=== PATIENT | male | born 1960 | race Caucasian/White ===

== ENCOUNTER 2022-11-10 08:13 | Emergency (ER) | payer OTHER, BC, SELFPAY ==
[2022-11-10 08:30] VITALS: BP 164/105; PULSE 73; RESP 18; TEMP 36.1; O2SAT 94; BMI 27.1
--- NOTE | 2022-11-10 08:36 | XR_ITS ---
Patient: HEIDI NEWMAN Facility:?[facility] Patient ID:?[id number] Site Patient ID:?[id number]. Site :?[id number] Study:?XRay-Extremity Left HAND 3 VIEW-11/10/2022 9:22:48 AM Ordering Physician:?UNKNOWN UNKNOWN Final Report: INDICATION: Trauma. Laceration. The patient cut his hand with a saw. TECHNIQUE: Three views of the left hand. FINDINGS: Soft tissue defect along the proximal lateral margin left 2nd finger. Small amount of air within the soft tissues. No radiodense foreign body. No fracture or erosive change. Degenerative change of the DIP joints of the fingers. Degenerative change of the wrist including the 1st CMC joint and triscaphe joint. IMPRESSION: Soft tissue swelling, laceration, and a small amount of air in the soft tissues along the proximal margin of the left 2nd finger without fracture or radiodense foreign bodies. Dictated by Jayce Borden MD @ 11/10/2022 9:32:40 AM Signed by:?Jayce Borden MD @11/10/2022 9:32:40 AM (Electronic Signature)
--- NOTE | 2022-11-10 08:48 | ED.NURSE ---
last tetanus 11/10/20
--- NOTE | 2022-11-10 09:55 | ED.WOUNDLAC ---
HPI - Wound/Laceration General Chief Complaint: Laceration/Wound Stated Complaint: r. hand lac Time Seen by Provider: 11/10/22 08:36 History of Present Illness HPI narrative: Pt is a 62 year old gentleman who comes in today after getting his gloved left hand caught in a band saw. Pt was able to pull his hand out but unfortunately he suffered a 6 cm laceration on the lateral and posterior aspect of his second digit and a 2 cm laceration on the posterior aspect of his 5th digit. Pt has full function of his hand and no other injuries. Direct pressure was applied and pt presented to the emergency room with no neuro or vascular injuries. Pt states pain is mild. Bleeding has been controlled. Pt states that he is up to date on his vaccinations. Related Data Home Medications Medication Instructions Recorded Confirmed escitalopram oxalate 10 mg tablet mg 11/10/22 rosuvastatin 10 mg tablet mg 11/10/22 tamsulosin 0.4 mg capsule mg PO 11/10/22 Allergies Allergy/AdvReac Type Severity Reaction Status Date / Time No Known Drug Allergies Allergy Verified 11/10/22 08:33 Review of Systems Status of ROS: Reports: 6 or more systems reviewed and unremarkable except as noted in History and below PFSH PFSH Medical History BPH (benign prostatic hyperplasia) Depression Hyperlipidemia Social History Smoking Status: Never smoker Do you use any of these nicotine containing products: Other How often do you have a drink containing alcohol: 2-3 times a week AUDIT-C Alcohol total score: 3 Non-prescribed substance use: denies use Exam Narrative: Exam Narrative: EXAM GENERAL: Patient appears comfortable and well. EYES: No scleral icterus. THYROID: no thyroid nodules or thyromegaly. LYMPH: No supraclavicular or cervical lymphadenopathy. SKIN: Lacerations as described above. EXT: No dependent lower extremity pedal edema. ABD: Soft, non tender, non distended. PSYCH: Good eye contact, speech is not pressured. Const: Vital Signs, click to edit/add: Vital Signs - 24 hr 11/10/22 08:30 Temperature 97 F L Pulse Rate [Pulse Oximeter] 73 Respiratory Rate 18 Blood Pressure [Ri ght Upper Arm] 164/105 H Pulse Oximetry 94 Oxygen Delivery Me thod Room Air Course Course Hospital Course: Pt seen and examined. X ray of the left hand negative for fracture upon my review. Wounds were washed with soap and water. Local anesthesia provided with 2% xylocaine 6 cc subcutaneously. Larger would was then closed with 9 3-0 ethylon sutures. The smaller wound was closed with 3 3-0 ethylon sutures. Wounds were dressed. Vital Signs Vital signs: Initial Vital Signs Temperature 97 F L 11/10/22 08:30 Temperature Source Temporal Artery Scan 11/10/22 08:30 Pulse Rate 73 11/10/22 08:30 Respiratory Rate 18 11/10/22 08:30 Blood Pressure 164/105 H 11/10/22 08:30 Blood Pressure Mean 124 11/10/22 08:30 Blood Pressure Position Supine 11/10/22 08:30 Pulse Oximetry 94 11/10/22 08:30 Oxygen Delivery Method 11/10/22 08:30 Vital Signs Temperature 97 F L 11/10/22 08:30 Pulse Rate 73 11/10/22 08:30 Respiratory Rate 18 11/10/22 08:30 Blood Pressure 164/105 H 11/10/22 08:30 Pulse Oximetry 94 11/10/22 08:30 Oxygen Delivery Method 11/10/22 08:30 Temperature 97 F L 11/10/22 08:30 Pulse Rate 73 11/10/22 08:30 Respiratory Rate 18 11/10/22 08:30 Blood Pressure 164/105 H 11/10/22 08:30 Pulse Oximetry 94 11/10/22 08:30 Oxygen Delivery Method 11/10/22 08:30 MDM - Wound/Laceration MDM Narrative Medical decision making narrative: Pt presents with 2 lacerations on his left hand. These were cleaned, sutured and dressed. X ray negative upon my review. Pt up to date on his Tdap. Pt will follow up in 9 days for suture removal. Differential Diagnosis Differential diagnosis: Likely laceration, abrasion and avulsion of skin Discharge Plan Discharge Clinical Impression: Laceration Patient Disposition: Home, Self-Care Condition: Stable Instructions: Laceration (ED) Additional Instructions: Sutures out next Monday Activity Level: No Restrictions Discharge Diet: Regular Prescriptions: No Action tamsulosin 0.4 mg capsule PO Label Comments: TAKE 1 CAPSULE BY MOUTH DAILY escitalopram oxalate 10 mg tablet Label Comments: TAKE 1 TABLET BY MOUTH DAILY rosuvastatin 10 mg tablet Label Comments: TAKE 1 TABLET BY MOUTH AT BEDTIME Follow Up/Referrals: Nabor Loera MD [Primary Care Provider] - Stand Alone Forms: [employer] Info Instructions
== END 2022-11-10 10:34 | disposition home or self-care (01) ==
PROVIDERS: Emergency Provider Internal Medicine; PCP Family Medicine
DX: S61.211A Laceration without foreign body of left index finger without damage to nail, initial encounter (principal); S61.217A Laceration without foreign body of left little finger without damage to nail, initial encounter; W31.2XXA Contact with powered woodworking and forming machines, initial encounter
CPT/HCPCS: 12004; 73130; 99283

== ENCOUNTER 2023-01-18 07:43 | Outpatient (CLI) | payer BC, SELFPAY | END 2023-01-18 07:44 | disposition home or self-care (01) | LOC: NFLDREF 15:21 | PROVIDERS: PCP Family Medicine; Referring Provider Family Medicine; Visit Provider Family Medicine | DX: Z00.00 Encounter for general adult medical examination without abnormal findings (principal); E78.5 Hyperlipidemia, unspecified; Z12.5 Encounter for screening for malignant neoplasm of prostate | CPT/HCPCS: 80053; 80061; 84153 ==

== ENCOUNTER 2023-11-14 09:00 | Outpatient (RCR) | payer BC, SELFPAY | END 2024-02-27 14:45 | disposition home or self-care (01) | PROVIDERS: PCP Family Medicine; Visit Provider Internal Medicine | DX: M17.10 Unilateral primary osteoarthritis, unspecified knee (principal); S89.90XA Unspecified injury of unspecified lower leg, initial encounter; M25.562 Pain in left knee; M25.662 Stiffness of left knee, not elsewhere classified; M62.81 Muscle weakness (generalized); Z51.89 Encounter for other specified aftercare | CPT/HCPCS: 97110; 97161; 97530 ==

== ENCOUNTER 2024-01-25 07:30 | Outpatient (CLI) | payer BC, SELFPAY ==
--- OUTSIDE RECORDS SUMMARY | 2024-01-26 12:53 | XMS_ITS | Clinical Summary ---
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 05/10/2023 Active rosuvastatin (CRESTOR) 10 mg tablet Take 10 mg by mouth at bedtime. 05/10/2023 Active escitalopram oxalate (LEXAPRO) 10 mg tablet Take 10 mg by mouth once daily. 05/10/2023 Active Active Problems Problem Noted Date Diagnosed Date Hydrocele in adult 07/13/2023 Tobacco use disorder 11/07/2007 Immunizations Name Administration Dates Next Due Td (Age >=7 Years) 12/09/1996 Td, Preservative Free (age >= 7 Years) 8 Tdap 11/10/2020,10/18/2010 Family History Medical History Relation Name Comments Cancer-prostate Father Diagnosed at 64 Hypertension Mother Relation Name Status Comments Father Mother Social History Tobacco Use Types Packs/Day Years Used Date Smoking Tobacco: Never Smokeless Tobacco: Current Chew Tobacco Cessation:Ready to Q uit: Not Asked; Counseling Given: Not Answered Comments:ATQ; 1 tin per week Alcohol Use Standard Drinks/Week Comments Yes 10 (1 standard drink = 0.6 oz pu re alcohol) some Social Connections Answer Date Recorded Frequency of Communication with Friends and Fami ly Not on file 05/23/2023 Sex and Gender Information Value Date Recorded Sex Assigned at Not on file Gender Identity Not on file Sexual Orientation Not on file Obstetrics History Last Filed Vital Signs Vital Sign Reading Time Taken Comments Blood Pressure 119/81 07/05/2023 3:00 PM CDT Pulse 65 07/31/2023 11:20 AM CDT Temperature 36.1 ??C (97 ??F) 07/05/2023 1:09 PM CDT Respiratory Rate 16 07/05/2023 3:00 PM CDT Oxygen Saturation 96% 07/31/2023 11:20 AM CDT Inhaled Oxygen Concentration - - Weight 89.1 kg (196 lb 8 oz) 07/31/2023 11:20 AM CDT Height 181 cm (5' 11.26) 07/05/2023 10:31 AM CD T Body Mass Index 27.21 07/05/2023 10:31 AM CDT Plan of Treatment Health Maintenance Due Date Last Done Comments Depression screening for age 12+ 1971 HIV for age 15-65 1974 Hepatitis C screening for age 18-79 1977 Colonoscopy through age 75 2004 Zoster (shingles) series for age 50+ (1 of 2) 2009 Lipids for age 45-75 11/08/2012 11/08/2007 COVID-19 vaccine series ( season) 2023 12/19/2020, 11/28/2020 Influenza for age 50-64 06/16/2024 BMI (ht and wt on same day) for age 18+ 06/27/2024 06/27/2023 Tetanus booster 11/10/2030 11/10/2020, 12/2010, 11/07/2007, Additional history exists Tdap Completed 11/10/2020, 10/18/2010 Pneumococcal series for age 6-64 Aged Out No longer eligible based on patient's age to complete this topic Procedures Procedure Name Priority Date/Time Associated Diagnosis Comments LIPID PANEL Routine 11/08/2007 7:19 AM TOOL DESIGN DRAFTSPERSON Routine General Medical Exam from Last 3 Months or Most Recently Relevant to Health Maintenance Results * (ABNORMAL) LIPID PANEL (11/08/2007 7:19 AM TOOL DESIGN DRAFTSPERSON) [facility] Signature CHOLESTEROL,TOTAL 221(H) 110 - 199 mg/dL [facility] TRIGLYCERIDES 186(H) <150 mg/dL [facility] HDL CHOLESTEROL 41 >40 mg/dL [facility] CHOL/HDL RATIO 5.39(H) <4.51 [facility] LDL CHOLESTEROL 143(H) <131 mg/dL [facility] PATIENT STATUS Fasting [facility] Blood specimen (specimen) BLOOD SPECIMEN / Unknown 11/08/2007 7:19 AM TOOL DESIGN DRAFTSPERSON 11/08/2007 7:15 AM TOOL DESIGN DRAFTSPERSON Kaushik Milian MD CHEMISTRY [facility] [address] [place] [address] from Last 3 Months or Most Recently Relevant to Health Maintenance Advance Directives * Full Code (Latest Code Status on File) Date Activated Date Inactivated Comments 07/05/2023 10:17 AM 07/05/2023 5:07 PM Question Answer Comments Code Status Discussion: Unable to Assess Preferences, Provider to review later Care Teams Custom Feed Mill Operator Relationship Specialty Start Date End Date [facility] [address] [place] [address] PCP - General 11/21/07
== END 2024-01-25 07:31 | disposition home or self-care (01) ==
LOC: NFLDREF 01-26 12:52
PROVIDERS: PCP Family Medicine; Referring Provider Family Medicine; Visit Provider Family Medicine
DX: E78.5 Hyperlipidemia, unspecified (principal); Z12.5 Encounter for screening for malignant neoplasm of prostate
CPT/HCPCS: 80053; 80061; G0103

== ENCOUNTER 2025-02-06 08:08 | Outpatient (CLI) | payer MEDICARE, BC, SELFPAY | END 2025-02-06 08:09 | disposition home or self-care (01) | LOC: NFLDREF 02-10 01:37 | PROVIDERS: PCP Family Medicine; Referring Provider Family Medicine; Visit Provider Family Medicine | DX: E78.5 Hyperlipidemia, unspecified (principal); Z12.5 Encounter for screening for malignant neoplasm of prostate | CPT/HCPCS: 80053; 80061; G0103 ==